=== PATIENT | male | born 1975 | race African-American/Black ===

== ENCOUNTER 2018-04-08 09:45 | Emergency (ER) | payer OTHER ==
[~2018-04-08] VITALS: Ht 195.6 cm; Wt 131.6 kg
[2018-04-08 13:05] VITALS: BP 141/99
== END 2018-04-08 13:07 ==
LOC: EME 09:45 → TRA 09:45 → EDBD 09:45 → TRA 13:07
DX: S39.012A Strain of muscle, fascia and tendon of lower back, initial encounter (principal); S70.01XA Contusion of right hip, initial encounter; W01.0XXA Fall on same level from slipping, tripping and stumbling without subsequent striking against object, initial encounter
CPT/HCPCS: 72131; 73502; 82803; 87040; 99281; 99285